=== PATIENT | male | born 1985 | race African-American/Black ===

== ENCOUNTER 2019-06-02 22:58 | Emergency (ER) | payer SELFPAY ==
[~2019-06-02] VITALS: Ht 188 cm; Wt 104.3 kg
[2019-06-02 23:30] VITALS: BP 133/83
[2019-06-03] MEDS ORDERED: TETRACAINE 0.5% OPHTH SOLUTION 4ML BOTTLE. OD ONE (00:30)
[2019-06-03] MEDS ORDERED: FLUORESCEIN OPHTH TEST STRIP. OD ONE (00:30)
== END 2019-06-03 00:26 | disposition left against medical advice (07) ==
LOC: ER 22:58
DX: H57.11 Ocular pain, right eye (principal); Z53.21 Procedure and treatment not carried out due to patient leaving prior to being seen by health care provider